=== PATIENT | male | born 1985 | race African-American/Black ===

== ENCOUNTER 2017-05-01 01:17 | Emergency (ER) | payer SELFPAY ==
[~2017-05-01] VITALS: Ht 167.6 cm; Wt 71.7 kg
--- NOTE | 2017-05-01 01:36 | ED CARDIAC/CP/PALPITATIONS ---
History of Present Illness General Chief Complaint: Chest Pain Stated Complaint: PT C/O CHEST DISCOMFORT X'S 3 DAYS Source: patient Exam Limitations: no limitations Vital Signs & Intake/Output Vital Signs & Intake/Output Vital Signs Date Time Temp Pulse Resp B/P B/P Pulse O2 O2 Flow FiO2 Mean Ox Delivery Rate 05/01 0132 96.2 66 20 132/83 97 Room Air Allergies Coded Allergies: No Known Allergies (05/01/17) Reconcile Medications Ibuprofen 800 MG TABLET 1 TAB PO TID PRN pain Triage Note: PT REPORTS AHVING CHEST PAIN FOR THE PAST FEW DAYS. PT REPORTS THAT HE WAS WALKING HOME TODAY AND FELT SOB AND WEAK. PT ALSO REPORTS PAIN IN RIGHT LOWER BACK. Triage Nurses Notes Reviewed? yes Onset: Gradual Duration: day(s):, waxing and waning Timing: recent history Quality/Severity: moderate Location: central Radiation: no radiation Activities at Onset: none Prior Chest Pain/Card Workup: no prior chest pain Modifying Factors: Worsens With: palpation. HPI: 31 yo gentleman in prior good health presents with 3 -4 days of chest wall pain. Tonight, he had another episode while walking home of central chest type pressure, with difficulty catching his breath w/ weakness. No wheezing, cough, phlegm, diaphoresis, radiation. Past History Travel History Traveled to [place] past 21 day No Medical History Any Pertinent Medical History? 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 No Review of Systems Review of Systems Constitutional: Reports: no symptoms. EENTM: Reports: no symptoms. Respiratory: Reports: no symptoms. Cardiovascular: Reports: no symptoms. GI: Reports: no symptoms. Genitourinary: Reports: no symptoms. Musculoskeletal: Reports: no symptoms. Skin: Reports: no symptoms. Neurological/Psychological: Reports: no symptoms. Hematologic/Endocrine: Reports: no symptoms. Immunologic/Allergic: Reports: no symptoms. All Other Systems: Reviewed and Negative Physical Exam Physical Exam General Appearance: well developed/nourished, no apparent distress Head: atraumatic, normal appearance Eyes: Bilateral: normal appearance. Ears, Nose, Throat: normal pharynx, normal ENT inspection Neck: normal inspection, supple, full range of motion Respiratory: normal breath sounds, no respiratory distress, minimal parasternal left sided chest pressure. Cardiovascular: regular rate/rhythm Gastrointestinal: normal bowel sounds, soft, non-tender, no organomegaly Back: normal inspection, normal range of motion Extremities: normal inspection Neurologic/Psych: no motor/sensory deficits, awake, alert, oriented x 3 Skin: intact, normal color, warm/dry Core Measures ACS in differential dx? No CVA/TIA Diagnosis No Sepsis Present: No Sepsis Focused Exam Completed? No Progress Differential Diagnosis: AMI, costochondritis, musculoskeletal pain, unstable angina Plan of Care: Orders Procedure Date/time Status D-DIMER 05/01 0150 Complete TROPONIN LEVEL 05/01 148 Complete LIPASE 05/01 148 Complete HEPATIC FUNCTION PANEL 05/01 148 Complete CBC WITHOUT DIFFERENTIAL 05/01 148 Complete BASIC METABOLIC PANEL 05/01 148 Complete AMYLASE 05/01 148 Complete EKG 05/01 012 Active Current Medications Sig/Divya Start time Last Medication Dose Stop Time Status Admin Ketorolac 60 MG ONCE ONE 05/01 020 UNVr 05/01 Tromethamine 05/01 020 0218 (Toradol) Laboratory Tests 05/01/17 0216: Anion Gap 10, Estimated GFR > 60, BUN/Creatinine Ratio 13.0, Glucose 86, Calcium 8.9, Total Bilirubin 0.3, Direct Bilirubin 0.2, AST 26, ALT 17 L, Alkaline Phosphatase 46, Troponin I < 0.01, Total Protein 7.2, Albumin 4.1, Amylase 139 H, Lipase 46, D-Dimer High Sensitivty < 200, CBC w Diff NO MAN DIFF REQ, RBC 5.91, MCV 70.4 L, MCH 22.4 L, MCHC 31.8 L, RDW 15.9 H, MPV 8.7, Gran % 44.9, Lymphocytes % 38.2, Monocytes % 14.2 H, Eosinophils % 2.1, Basophils % 0.6, Absolute Granulocytes 2.1, Absolute Lymphocytes 1.8, Absolute Monocytes 0.7 H, Absolute Eosinophils 0.1, Absolute Basophils 0 Diagnostic Imaging: Viewed by Me: Radiology Read. Discussed w/RAD: Radiology Read. CXR Impression: no acute abnormality, no infiltrates, normal size heart, normal mediastinum, PATIENT: KATE SEYMOUR PRESENT AGE: 31 PATIENT ACCOUNT NO: [id number] : 87 LOCATION: [facility] ORDERING PHYSICIAN: Thompson Fernandez MD SERVICE DATE: 05/01/17 EXAM TYPE: RAD - XRY- PORTABLE CHEST XRAY EXAMINATION: XR PORTABLE CHEST CLINICAL INFORMATION: Chest pain COMPARISON: None TECHNIQUE: Portable frontal view of the chest was obtained. 2:14 AM FINDINGS: No significant abnormality is noted involving the heart, lungs, mediastinum, bony thorax or soft tissues. IMPRESSION: Unremarkable examination. 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 <Electronically signed in Other Vendor System> SIGNED BY: Ricky López MD 05/01/17 024 Initial ED EKG: normal axis, normal intervals, normal p-waves, normal QRS complex, normal sinus rhythm, early repolarization, normal variant Departure Departure Disposition: HOME OR SELF CARE Condition: Stable Clinical Impression Primary Impression: Chest pain Referrals: Patient Has No Primary Care Dr (PCP/Family) Departure Forms: Customer Survey General Discharge Information Prescriptions: Current Visit Scripts Ibuprofen 1 TAB PO TID PRN pain #30 TAB Comments 05/01/17, 2:57am... pt feels better after toradol... ekg benign, trop/dimer negative... pt has had symptoms for 3 days, otherwise no risk factors... pt safe for discharge. pt referred to cardiology. Critical Care Note Critical Care Note Critical Care Time: non-applicable
[2017-05-01 02:26] LABS: ABSOLUTE BASOPHIL COUNT 0 /CUMM (0.0-0.2); ABSOLUTE EOSINOPHIL COUNT 0.1 /CUMM (0.0-0.7); ABSOLUTE GRANULOCYTE CT 2.1 /CUMM (1.4-6.5); ABSOLUTE LYMPH COUNT 1.8 /CUMM (1.2-3.4); ABSOLUTE MONOCYTE COUNT 0.7 /CUMM (0.10-0.60); BASOPHIL % 0.6 % (0.0-2.0); EOSINOPHIL % 2.1 % (0-5); GRANULOCYTE % 44.9 % (42.2-75.2); HEMATOCRIT 41.6 % (42-52); MEAN CORPUSCULAR HGB 22.4 PG (27.0-31.0); MEAN CORPUSCULAR HGB CONC 31.8 G/DL (33.0-37.0); MEAN CORPUSCULAR VOLUME 70.4 FL (80.0-94.0); MEAN PLATELET VOLUME 8.7 FL (7.4-10.4); PLATELET COUNT 212 /CUMM (130-400); RBC DISTRIBUTION WIDTH 15.9 % (11.5-14.5); RED BLOOD CELL CT 5.91 /CUMM (4.70-6.10); WHITE BLOOD CELL COUNT 4.7 /CUMM (4.8-10.8)
--- NOTE | 2017-05-01 02:41 | RADIOLOGY REPORT ---
EXAMINATION: XR PORTABLE CHEST CLINICAL INFORMATION: Chest pain COMPARISON: None TECHNIQUE: Portable frontal view of the chest was obtained. 2:14 AM FINDINGS: No significant abnormality is noted involving the heart, lungs, mediastinum, bony thorax or soft tissues. IMPRESSION: Unremarkable examination.
[2017-05-01] MEDS ORDERED: IBUPROFEN800 M1 PO (02:58)
[2017-05-01 03:07] VITALS: BP 130/76
== END 2017-05-01 03:07 ==
LOC: ERH 01:17
PROVIDERS: Pediatrics
DX: R07.89 Other chest pain (principal)
CPT/HCPCS: 71045; 93005; 93010; 96372; J1885